=== PATIENT | female | born 1955 | race Caucasian/White ===

== ENCOUNTER → 2022-05-11 11:31 | Outpatient (BNVA) | payer OTHER, SELFPAY | PROVIDERS: Family Provider Internal Medicine; Visit Provider Orthopaedic Surgery | DX: M89.9 Disorder of bone, unspecified (principal); M25.511 Pain in right shoulder | CPT/HCPCS: 73030; 99203 ==

== ENCOUNTER 2022-06-24 12:39 | Outpatient (CLI) | payer OTHER, SELFPAY ==
--- NOTE | 2022-06-24 13:00 | MR_ITS ---
WS: [id number] MRI RIGHT SHOULDER NONCONTRAST TECHNIQUE: Sagittal T2, coronal T1, T2 and proton density imaging. Axial gradient PDE imaging. CLINICAL INFORMATION: pain COMPARISON: None. FINDINGS: Stable previously described proximal humerus enchondroma. Moderate degenerative arthritis AC joint wi th mild edema. Small amount of subacromial and subdeltoid fluid. Chronic thinning of the distal supra spinatus. Tendinopathy in the distal supraspinatus with T2 signal abnormality. Tiny intrasubstance te ars distally. Small insertional tear with slight retraction measuring 5 mm distal supraspinatus Tendinopathy with small intrasubstance tears distal infraspinatus. Normal teres minor. Normal subscap ularis. Somewhat diminutive biceps tendon appears intact within the bicipital groove. Biceps labral a nchor appears intact. Intra-articular biceps tendon appears intact. Glenoid labrum appears grossly intact. Moderate degenerative arthritis at the glenohumeral joint. MR/MR shoulder RT wo con* [id number] IMPRESSION: 1. Moderate degenerative arthritis AC joint with mild edema. Small amount of s ubacromial and subdeltoid fluid. 2. Small insertional tear distal supraspinatus with 5 mm of retraction. Tendin opathy distal supraspinatus. 3. Tendinopathy with small intrasubstance tears involving the distal infraspin atus. 4. Rotator cuff is otherwise normal in appearance. 5. Somewhat diminutive biceps tendon appears intact within the bicipital groov e. Intra-articular biceps tendon appears intact. 6. Stable enchondroma in the proximal humerus. 7. Moderate degenerative arthritis glenohumeral joint.
== END 2022-06-24 12:40 | disposition home or self-care (01) ==
LOC: RAD 12:40
PROVIDERS: PCP Internal Medicine; Visit Provider Orthopaedic Surgery
DX: M89.9 Disorder of bone, unspecified (principal); M19.011 Primary osteoarthritis, right shoulder; M77.8 Other enthesopathies, not elsewhere classified; M75.101 Unspecified rotator cuff tear or rupture of right shoulder, not specified as traumatic
CPT/HCPCS: 73221

== ENCOUNTER → 2022-07-13 10:29 | Outpatient (BNVA) | payer OTHER, SELFPAY | PROVIDERS: PCP Internal Medicine; Visit Provider Orthopaedic Surgery | DX: M75.101 Unspecified rotator cuff tear or rupture of right shoulder, not specified as traumatic (principal) | CPT/HCPCS: 99213 ==

== ENCOUNTER → 2022-08-03 11:12 | Outpatient (BNVA) | payer OTHER, SELFPAY | PROVIDERS: PCP Internal Medicine; Referring Provider Internal Medicine; Visit Provider Orthopaedic Surgery | DX: M70.61 Trochanteric bursitis, right hip (principal) | CPT/HCPCS: 73502; 99213 ==

== ENCOUNTER → 2022-11-24 12:18 | Outpatient (BNVA) | payer OTHER, SELFPAY | PROVIDERS: PCP Internal Medicine; Visit Provider Orthopaedic Surgery | DX: M70.61 Trochanteric bursitis, right hip (principal); M75.101 Unspecified rotator cuff tear or rupture of right shoulder, not specified as traumatic | CPT/HCPCS: 20610; 99213; J0702; J3490 ==

== ENCOUNTER → 2024-08-15 13:30 | Outpatient (BNVA) | payer OTHER, SELFPAY | PROVIDERS: PCP Internal Medicine; Visit Provider Specialist | DX: M79.642 Pain in left hand (principal); M65.312 Trigger thumb, left thumb; E11.9 Type 2 diabetes mellitus without complications; Z79.4 Long term (current) use of insulin; Z79.84 Long term (current) use of oral hypoglycemic drugs | CPT/HCPCS: 36415; 73130; 80053; 81001; 83036; 85025; 99204 ==

== ENCOUNTER → 2024-09-14 11:01 | Outpatient (BNVA) | payer OTHER, SELFPAY | PROVIDERS: PCP Internal Medicine; Visit Provider Family Medicine | DX: I10 Essential (primary) hypertension (principal); Z01.818 Encounter for other preprocedural examination; R94.31 Abnormal electrocardiogram [ECG] [EKG] | CPT/HCPCS: 93005 ==

== ENCOUNTER 2024-09-18 09:55 | Day surgery (SDC) | payer OTHER, SELFPAY ==
[2024-09-18] VITALS (7 sets, daily range): BP systolic 140–159; BP diastolic 66–88; PULSE 58–62; RESP 12–60; TEMP 36.1–36.3; O2SAT 95–98; BMI 36.0
[2024-09-18] MEDS: sodium chloride 0.9% 1,000 ML 30 ML IV (10:49)
[2024-09-18] MEDS: acetaminophen 1,000 MG/100 ML PIGGYBACK 400 MG IV (10:50)
[2024-09-18] MEDS: CELEcoxib 200 mg Capsule 400 MG PO (10:50)
[2024-09-18] MEDS: gabapentin 300 mg Capsule PO (10:50)
--- NOTE | 2024-09-18 10:52 | P.HPUD_ITS ---
Surgery/Procedure H&P Update DATE OF PROCEDURE: September 18, 2024 DATE H&P PERFORMED: 09/14/24 H&P UPDATE INFORMATION: I have reviewed H&P completed within last 30 days, I have examined patient prior to procedure, No changes to prior documentation and H&P is in [facility] EMR on date indicated PLANNED PROCEDURE: Operation Date: 09/18/24 11:30 Proposed Procedures p LEFT THUMB TRIGGER FINGER RELEASE(Left) - Sarahi Hughes MD Related Problem List Diagnoses (1) Trigger thumb of left hand:
--- NOTE | 2024-09-18 10:53 | ANES.PREANE2 ---
Pre-Anesthetic Assessment Height/Weight: Height 5 ft 8 in Temp Pulse Resp BP Pulse Ox O2 Del Method 97.4 F L 61 18 140/85 97 Room Air 09/18/24 10:34 09/18/24 10:34 09/18/24 10:34 09/18/24 10:34 09/18/24 10:34 09/18/24 10:34 Preop Diagnosis: Trigger thumb Operation Date: 09/18/24 11:30 Proposed Procedures p LEFT THUMB TRIGGER FINGER RELEASE(Left) - Sarahi Hughes MD Was Beta Rachana taken within 24 hours: N/A Was Clonidine taken within 24 hours: N/A Last intake: Intake Last Liquid Date 09/17/24 Last Liquid Time 21:00 Last Solid Date 09/17/24 Last Solid Time 21:00 Social No alcohol and No tobacco Exam alert, oriented x 3, clear to auscultation bilaterally and regular rate & rhythm Airway Submandibular: within normal limits Cervical ROM: within normal limits Mallampati: Class II Dentition: full Anesthetic Plan ASA status: 3 Anesthesia: MAC Other: Patient states that she has severe sleep apnea and has required intubation during attempted MAC procedures in the past NPO since yesterday History of type 2 diabetes on insulin we will check blood sugar. Patient also takes dulaglutide, last taken 09/07/2024 GERD on Protonix Hypertension on metoprolol THERESE, does not use CPAP METs greater than 4 Plan for light MAC with local via surgeon Medications/Allergies Home Medications Medication Instructions Recorded Confirmed Last Taken Type aspirin 81 mg tablet,delayed 81 mg PO DAILY 05/11/22 09/17/24 09/17/24 History release gabapentin 100 mg capsule 100 mg PO BID 05/11/22 09/17/24 09/17/24 History metformin 500 mg tablet 500 mg PO DAILY 05/11/22 09/17/24 09/16/24 History metoprolol tartrate 50 mg tablet 50 mg PO DAILY 05/11/22 09/17/24 09/17/24 History rosuvastatin 20 mg tablet 20 mg PO DAILY 05/11/22 09/17/24 09/17/24 History dulaglutide 3 mg/0.5 mL 3 mg SUBCUT .WEEKLY. 08/15/24 09/17/24 09/07/24 History subcutaneous pen injector (Trulicity) insulin aspart U-100 100 unit/mL 16 unit SUBCUT BID 09/14/24 09/17/24 09/17/24 History (3 mL) subcutaneous pen (Novolog FlexPen U-100 Insulin aspart) insulin glargine 100 unit/mL 26 unit SUBCUT DAILY 09/14/24 09/17/24 09/17/24 History subcutaneous solution (Lantus U-100 Insulin) pantoprazole 40 mg tablet,delayed 40 mg PO DAILY 09/17/24 09/17/24 09/17/24 History release Allergies Allergy/AdvReac Type Severity Reaction Status Date / Time codeine Allergy ADR-Nausea Verified 09/18/24 10:11 Sulfa (Sulfonamide Allergy ALGY-Difficulty Verified 09/14/24 11:15 Antibiotics) Breathing Tetracyclines Allergy ALGY-Difficulty Verified 09/14/24 11:15 Breathing Current Medications Generic Name Dose Route Start Last Admin Trade Name Freq PRN Reason Stop Dose Admin Sodium Chloride 1,000 mls @ 30 mls/hr 09/18/24 10:15 09/18/24 10:49 Sodium Chloride 0.9% IV 09/19/24 10:14 30 mls/hr .Q24H EVERARDO Administration PFSH Anesthesia Social History Smoking and tobacco/nicotine status: never used tobacco/nicotine Alcohol intake: never Substance/Drug Use: never Data Anesthesia Cardiac Studies: No Data to Display
[2024-09-18 10:57] LABS: Glucose Point of Care 136 mg/dL (70-110)
[2024-09-18] MEDS: ceFAZolin 2,000 mg SDV 2000 MG IVP (11:20)
[2024-09-18] MEDS: BUPivacaine 0.5% INJ 30 mL XX (11:34)
--- NOTE | 2024-09-18 12:19 | PM.OP ---
Operative Report Date of procedure: September 18, 2024 Pre-op diagnosis: Left trigger thumb Post-op diagnosis: Left trigger thumb Post-op findings: Significant thickening of the A1 sourav of the left thumb Procedure done: Left trigger thumb release Implants: None Specimens removed/disposition: None Pathology: None Surgeon: Sarahi Hughes MD Dean Of Girls: None Anesthesia: MAC (With local ASA 3) Estimated blood loss (mL): 1 Tourniquet time (min): 13 (At 50 mmHg) IV fluids (mL): 400 Urine output (mL): 0 (No [place]) Complications: None Findings: As above Condition: stable Disposition: PACU (Then return to same-day surgery for discharge to home) Brief History: This 68-year-old woman presents today with complaints of significant left thumb triggering. Patient complains of significant pain rating it at 5 of 10 and higher when the finger gets stuck. She had physical therapy which did not help. After discussion in the office, the patient wished to proceed with operative intervention in the form of trigger thumb release. Consents were signed in the office. On the day of surgery, surgical procedure was again reviewed. Questions were answered. Consents have been signed in the office but these were confirmed with the patient. Procedure: Patient was brought to the operating theater. She was placed on the operating room table. Patient was administered anesthesia monitored sedation, and local anesthetic was utilized. Patient tolerated it well. She was given 2 g of Ancef prophylactically. A tourniquet was placed high on the arm and was elevated to 250 mmHg for 13 minutes following exsanguination. Surgical pause was performed prior to commencement of the surgical procedure. At the time of the surgical pause we identified the site and side of surgery. We also identified the patient's identity and appropriate administration of IV antibiotics. Following the surgical pause, local anesthetic was administered and evaluated. Incision was marked, and then an incision was made along the metacarpal phalangeal crease of the thumb. Dissection continued through the skin to the subcutaneous tissues using a scalpel. Blunt dissection was then utilized to spread soft tissues and allow access to the A1 sourav. It was then incised longitudinally and sharply using a knife. This was accomplished without difficulty and atraumatically. Once the A1 sourav was released, tendons were brought up out of the wound and evaluated. There were no gross masses on the tendons. Tendons were returned to normal position. We then irrigated the wound and subsequently closed it with 3-0 nylon with an interrupted mattress type suture. Sterile dressing was then placed consisting of OpSite, fluffed fluffs, sterile soft roll, and an Kyaw wrap. The patient was returned to recovery in satisfactory condition. She will be discharged home to follow-up with me in the office. There were no complications and no specimens. Related Problem List Diagnoses (1) Trigger thumb of left hand:
--- NOTE | 2024-09-18 12:55 | ANE.PACU2 ---
Inpatient post-anesthesia follow up: Airway intact: Yes Vital signs: Temperature 97.3 F Pulse Rate 60 Respiratory Rate 60 Blood Pressure 158/88 Pulse Oximetry 98 Oxygen Delivery Me thod Room Air Oxygen Flow Rate Fraction of Inspir ed Oxygen Hydration adequate: Yes Nausea and vomiting: No Pain level: 1 Mental status: Baseline
== END 2024-09-18 12:55 | disposition home or self-care (01) ==
PROVIDERS: PCP Internal Medicine; Visit Provider Specialist
PROC: (CPT 26055; principal; 2024-09-18 11:20)
DX: M65.312 Trigger thumb, left thumb (principal); E11.9 Type 2 diabetes mellitus without complications; I10 Essential (primary) hypertension; G47.33 Obstructive sleep apnea (adult) (pediatric); Z79.82 Long term (current) use of aspirin; Z79.4 Long term (current) use of insulin
CPT/HCPCS: 26055; 36416; 82962; J0131; J0690; J2704; J3490; J7030

== ENCOUNTER → 2024-10-01 13:51 | Outpatient (BNVA) | payer OTHER, SELFPAY | PROVIDERS: PCP Internal Medicine; Visit Provider Nurse Practitioner | DX: Z98.890 Other specified postprocedural states (principal); M65.312 Trigger thumb, left thumb | CPT/HCPCS: 99024 ==